=== PATIENT | female | born 1960 | race Asian ===

== ENCOUNTER 2019-02-14 09:50 | Day surgery (SDC) | payer OTHER ==
[2019-02-14] MEDS ORDERED: MIDAZOLAM 1 MG/ML 2 ML INJ (11:41)
[2019-02-14] MEDS ORDERED: FENTAnyl 50 MCG/ML VIAL (11:41)
== END 2019-02-14 13:23 | disposition home or self-care (01) ==
LOC: GIL 09:50
DX: Z12.11 Encounter for screening for malignant neoplasm of colon (principal); K64.8 Other hemorrhoids; D12.5 Benign neoplasm of sigmoid colon; K57.30 Diverticulosis of large intestine without perforation or abscess without bleeding
CPT/HCPCS: 45380; 88305